=== PATIENT | female | born 1950 | race Caucasian/White ===

== ENCOUNTER → 2023-08-18 | Outpatient (CLI) | payer MEDICARE ==
[2023-08-22 20:38] LABS: HSV 1 SUBTYPE BY PCR Not Detected; HSV 2 SUBTYPE BY PCR Not Detected
[2023-08-23 08:25] LABS: VARICELLA-ZOSTER VIRUS BY PCR Not Detected
== END ==
LOC: LAB 11:51 → LAB SHORT 11:51
PROVIDERS: Physician Assistant Medical
DX: R21 Rash and other nonspecific skin eruption (principal); D48.5 Neoplasm of uncertain behavior of skin; L57.0 Actinic keratosis; L57.8 Other skin changes due to chronic exposure to nonionizing radiation; L85.3 Xerosis cutis; Z71.89 Other specified counseling; Z12.83 Encounter for screening for malignant neoplasm of skin; Z08 Encounter for follow-up examination after completed treatment for malignant neoplasm; Z85.828 Personal history of other malignant neoplasm of skin; Z86.007 Personal history of in-situ neoplasm of skin
CPT/HCPCS: 87529; 87798

== ENCOUNTER 2024-08-28 08:28 | Day surgery (SDC) | payer MEDICARE ==
[~2024-08-28] VITALS: Ht 165.1 cm; Wt 77.1 kg
[2024-08-28] MEDS ORDERED: Lactated Ringer's 1,000 ML IV ONE ×2 (08:32→09:27)
[2024-08-28] MEDS ORDERED: propofoL 50 ML IV ONE (08:32)
[2024-08-28] MEDS ORDERED: ATOR40TA (08:49)
[2024-08-28] MEDS ORDERED: LEVOTHYROXINE75 MC8 (08:51)
[2024-08-28] MEDS ORDERED: ALEN70 (08:51)
[2024-08-28] MEDS ORDERED: ACYC200 (08:51)
[2024-08-28] MEDS ORDERED: Budeprion Xl300 MG (08:52)
[2024-08-28] MEDS ORDERED: [UNRECOGNIZED DRUG - CODE] (08:57)
[2024-08-28] MEDS ORDERED: VIT D (08:58)
[2024-08-28] MEDS ORDERED: [UNRECOGNIZED DRUG - OTHER] (09:00)
[2024-08-28] MEDS ORDERED: VIT C (09:00)
[2024-08-28 10:56] VITALS: BP 100/65
== END 2024-08-28 10:58 | disposition home or self-care (01) ==
LOC: ORSCSDS 08:28
DX: R19.7 Diarrhea, unspecified (principal); D12.2 Benign neoplasm of ascending colon; D12.3 Benign neoplasm of transverse colon; R15.9 Full incontinence of feces; R10.30 Lower abdominal pain, unspecified; Z86.0100 Personal history of colon polyps, unspecified; E78.5 Hyperlipidemia, unspecified; Z87.891 Personal history of nicotine dependence
CPT/HCPCS: 88305; J2704; J7120